=== PATIENT | male | born 1960 ===

== ENCOUNTER 2021-03-19 06:37 | Day surgery (SDC) | payer OTHER ==
[~2021-03-19] VITALS: Ht 170 cm; Wt 73.0 kg
[~2021-03-19 06:37] MED LIST: PRILOSEC20 MG PO
[2021-03-20 07:30] LABS: BASOPHIL 0.1 % (0-2); EOSINOPHIL 0.1 % (0-5); HCT 37.3 % (42.0-52.0); HGB 12.4 g/dl (13.2-18.0); LYMPHOCYTE 7.2 % (15-48); MCH 31.4 pg (25.0-31.0); MCHC 33.2 g/dL (32.0-36.0); MCV 94.4 fL (78.0-100.0); MONOCYTE 7.5 % (0-12); MPV 10.1 fL (6.0-9.5); NEUTROPHIL 84.4 % (41-80); NRBC 0; PLT 272 K/uL (150-400); RBC 3.95 M/uL (4.70-6.00); RDW 12.4 % (11.5-14.0); WBC 16.5 K/uL (4.0-10.5)
[2021-03-20 07:49] LABS: BUN/CREAT RATIO (CALC) 17.7 RATIO; CREATININE 0.79 mg/dL (0.67-1.17); POTASSIUM 4.4 mmol/L (3.5-5.1)
[2021-03-20] MEDS ORDERED: XARELTO10 MG PO (08:45)
[2021-03-20] MEDS ORDERED: FEOSOL325 MG PO (08:45)
[2021-03-20] MEDS ORDERED: OXYCODONE-ACET1 EAC1 PO (08:45)
== END 2021-03-20 11:58 | disposition home or self-care (01) ==
LOC: FAS 06:37 → FMS 10:53 → FAS 03-20 11:58
PROVIDERS: Legal Medicine
DX: M17.11 Unilateral primary osteoarthritis, right knee (principal); M22.41 Chondromalacia patellae, right knee; G89.18 Other acute postprocedural pain; M21.161 Varus deformity, not elsewhere classified, right knee; K21.9 Gastro-esophageal reflux disease without esophagitis; F17.220 Nicotine dependence, chewing tobacco, uncomplicated; Z79.899 Other long term (current) drug therapy; Z20.822 Contact with and (suspected) exposure to COVID-19
CPT/HCPCS: 36415; 73560; 80048; 85025; 86850; 86900; 86901; 94010; 97161; 97165; 97530-GP; 97535; C1713; C1776; J0171; J0697; J1100; J1170; J1885; J2250; J2270; J2405; J2704; J2795; J3010; J7120; U0002